=== PATIENT | male | born 1955 | race Caucasian/White ===

== ENCOUNTER → 2016-08-01 | Outpatient (CLI) | payer OTHER ==
--- NOTE | 2016-08-01 14:06 | DX ---
Chest, PA and Lateral, August 01, 2016 History: Shortness of breath. Asbestos exposure. Comparison: June 2016. Findings: Heart size is within normal limits. Pulmonary vascularity appears normal. Mild elevation of the right hemidiaphragm. No evidence for acute airspace consolidation. No evidence for pleural effus ion or pneumothorax. Mild degenerative change is seen in the thoracic spine. Mild peribronchial wall thickening is seen. Impression: Stable mild bronchitis. No evidence for acute cardiopulmonary abnormality.
== END ==
LOC: BRMIMAGING 12:58
PROVIDERS: ATTEND Family Medicine
DX: R06.02 Shortness of breath (principal); Z77.090 Contact with and (suspected) exposure to asbestos
CPT/HCPCS: 71020-PO